=== PATIENT | female | born 2000 | race Caucasian/White ===

== ENCOUNTER → 2019-07-14 | Outpatient (CLI) | payer OTHER ==
[2019-01-30 10:01] VITALS: BP 134/84
[~2019-07-14] MED LIST: DOCU-109 PO; IBUP-1027 PO; OXYC1TAB15 PO
[2019-07-14 15:54] LABS: BASO # 0.1 x10^3/uL (0.0-0.2); BASO % 1 % (0-3); EOS # 0.1 x10^3/uL (0.0-0.7); EOS % 1 % (0-3); HEMATOCRIT 40.8 % (36.0-47.0); HEMOGLOBIN 13.2 g/dL (12.0-15.5); LYMPH # 3.3 x10^3/uL (1.0-4.8); LYMPH % 34 % (24-48); MEAN CORPUSCULAR HEMOGLOBIN 27 pg (25-35); MEAN CORPUSCULAR HGB CONC 33 g/dL (31-37); MEAN CORPUSCULAR VOLUME 82 fL (79-100); MONO # 0.6 x10^3/uL (0.0-1.1); MONO % 6 % (0-9); NEUT # 5.5 x10^3/uL (1.8-7.7); NEUT % 58 % (31-73); PLATELET COUNT 285 x10^3/uL (140-400); RED BLOOD COUNT 4.95 x10^6/uL (3.50-5.40); RED CELL DISTRIBUTION WIDTH 15.6 % (11.5-14.5); WHITE BLOOD COUNT 9.6 x10^3/uL (4.0-11.0)
[2019-07-14 16:07] LABS: CHOLESTEROL/HDL RATIO 3.5
[2019-07-14 16:20] LABS: FREE T4 1.08 ng/dL (0.76-1.46); THYROID STIM HORMONE (TSH) 2.315 uIU/mL (0.358-3.74)
== END | disposition home or self-care (01) ==
LOC: LAB 15:18
PROVIDERS: ATTEND Obstetrics & Gynecology
DX: Z30.09 Encounter for other general counseling and advice on contraception (principal); E34.9 Endocrine disorder, unspecified
CPT/HCPCS: 36415; 80061; 84439; 84443; 85025

== ENCOUNTER → 2019-12-17 | Outpatient (CLI) | payer OTHER ==
[2019-01-30 10:01] VITALS: BP 134/84
[2019-12-17 17:39] LABS: BASO % 0 % (0-3); EOS # 0.1 x10^3/uL (0.0-0.7); EOS % 1 % (0-3); HEMATOCRIT 38.6 % (36.0-47.0); LYMPH # 2.4 x10^3/uL (1.0-4.8); LYMPH % 25 % (24-48); MEAN CORPUSCULAR HEMOGLOBIN 29 pg (25-35); MEAN CORPUSCULAR HGB CONC 34 g/dL (31-37); MEAN CORPUSCULAR VOLUME 86 fL (79-100); MONO # 0.5 x10^3/uL (0.0-1.1); MONO % 5 % (0-9); NEUT # 6.8 x10^3/uL (1.8-7.7); NEUT % 69 % (31-73); PLATELET COUNT 224 x10^3/uL (140-400); RED BLOOD COUNT 4.49 x10^6/uL (3.50-5.40); RED CELL DISTRIBUTION WIDTH 14.5 % (11.5-14.5); WHITE BLOOD COUNT 9.8 x10^3/uL (4.0-11.0)
== END | disposition home or self-care (01) ==
LOC: LAB 15:23
PROVIDERS: ATTEND Obstetrics & Gynecology
DX: Z32.01 Encounter for pregnancy test, result positive (principal)
CPT/HCPCS: 36415; 85025; 86592; 86703; 86762; 86850; 86900; 86901; 87340

== ENCOUNTER 2020-07-07 16:36 | Observation (INO) | payer OTHER ==
[2019-01-30 10:01] VITALS: BP 134/84
[2020-07-07 17:51] LABS: AMNIO PT NEGATIVE
--- NOTE | 2020-07-07 18:36 | RAD ---
Exam: Ultrasound OB limited Indication: Leaking fluid Technique: Real-time grayscale and color Doppler images of the pelvis were obtained by the department marble worker. Comparisons: None FINDINGS: Within the uterus there is a single live intrauterine gestation with heart rate measuring 162 b pm. Fetus is in cephalic position. measurements as follows: BPD: 9.1 cm corresponding to 37 weeks 1 day Head circumference: 32.8 cm corresponding to 37 weeks 2 days Abdominal circumference: 33.4 cm corresponding to 37 weeks 2 days Femur length: 6.6 cm corresponding to 34 weeks 1 day JEAN CARLOS measured at 7.1 cm. Placenta is fundal and appears normal. IMPRESSION: 1. JEAN CARLOS measured at 7.1 cm. 2. Single live intrauterine gestation with measurements as described above. Electronically signed by: Nyla Olmstead MD (07/07/2020 6:34 PM) TU
== END 2020-07-07 18:00 | disposition home or self-care (01) ==
LOC: 3 SO LND 16:36
PROVIDERS: ADMIT Obstetrics & Gynecology; ATTEND Obstetrics & Gynecology
DX: O42.92 Full-term premature rupture of membranes, unspecified as to length of time between rupture and onset of labor (principal); O62.9 Abnormality of forces of labor, unspecified; Z3A.37 37 weeks gestation of pregnancy
CPT/HCPCS: 36415; 59025; 76815; 84112; G0378; G0379

== ENCOUNTER 2020-07-13 11:58 | Observation (INO) | payer OTHER ==
[2019-01-30 10:01] VITALS: BP 134/84
[2020-07-13] MEDS ORDERED: IV RINGERS,LACTATED 1000ML 1,000 ML IV SCH (12:15)
[2020-07-13 12:40] LABS: BILIRUBIN,URINE NEGATIVE (NEG); CLARITY,URINE CLEAR; COLOR,URINE YELLOW; NITRITE,URINE NEGATIVE (NEG); PROTEIN,URINE NEGATIVE (NEG-TRACE); UROBILINOGEN,URINE 0.2 mg/dL (0.2 mg/dL)
[2020-07-13 13:18] LABS: BACTERIA,URINE MODERATE /HPF (0-FEW)
[2020-07-13 13:19] LABS: RBC,URINE 0 /HPF (0-2)
--- NOTE | 2020-07-13 14:35 | RAD ---
EXAM: Follow-up OB Ultrasound INDICATION: Reason: JEAN CARLOS; LOW JEAN CARLOS ON PREVIOUS US 07/07/20 / Spl. Instructions: / History: TECHNIQUE: Real-time follow-up limited obstetrical ultrasound was performed with permanent freeze-fra me documentation. COMPARISON: Limited OB ultrasound of 07/07/2020 FINDINGS: POSITION: Cephalic HEART RATE: 149 bpm JEAN CARLOS: 8.8 cm PLACENTA: Fundal AGE/DATES: Gestational Age by LMP: 37 weeks 6 days EDC by LMP: 07/28/2020 JEAN CARLOS measures 4.2 cm Cervical length is 4.9 cm. IMPRESSION: Live single IUP in cephalic presentation with JEAN CARLOS of 8.8 cm. Electronically signed by: Rogelio Galeas MD (07/13/2020 2:33 PM) [id number]
== END 2020-07-13 14:15 | disposition home or self-care (01) ==
LOC: 3 SO LND 11:58
PROVIDERS: ADMIT Obstetrics & Gynecology; ATTEND Obstetrics & Gynecology
DX: O99.891 Other specified diseases and conditions complicating pregnancy (principal); M54.9 Dorsalgia, unspecified; O26.893 Other specified pregnancy related conditions, third trimester; R51.9 Headache, unspecified; O62.9 Abnormality of forces of labor, unspecified; Z3A.37 37 weeks gestation of pregnancy
CPT/HCPCS: 59025; 76816; 81001; 87086; G0378; G0379

== ENCOUNTER → 2020-07-18 | Outpatient (CLI) | payer OTHER ==
[2019-01-30 10:01] VITALS: BP 134/84
== END ==
LOC: LAB 12:23
PROVIDERS: ATTEND Obstetrics & Gynecology
DX: Z01.812 Encounter for preprocedural laboratory examination (principal); Z20.822 Contact with and (suspected) exposure to COVID-19
CPT/HCPCS: U0003

== ENCOUNTER 2020-07-21 18:55 | Inpatient (IN) | payer OTHER ==
[~2020-07-21] VITALS: Ht 160 cm; Wt 94.1 kg
[2020-07-21] MEDS ORDERED: LIDOCAINE 1% PF 30 ML VIAL. INJ PRN (19:30)
[2020-07-21] MEDS ORDERED: TERBUTALINE 1 MG/ML VIAL. SQ PRN (19:30)
[2020-07-21] MEDS ORDERED: MAG HYDROX/ALUMINUM HYD/SIMETH 30 ML ORAL.SUSP PO PRN (19:30)
[2020-07-21] MEDS ORDERED: 0.9 % SODIUM CHLORIDE 10 ML DISP.SYRIN. IV PRN (19:30)
[2020-07-21] MEDS ORDERED: OXYTOCIN 30 UNIT/500 ML PREMIX 500 ML IV PRN ×3 (19:30)
[2020-07-21] MEDS ORDERED: ONDANSETRON PF 4 MG/2 ML VIAL. IVP PRN (19:30)
[2020-07-21] MEDS ORDERED: ACETAMINOPHEN 325 MG TABLET. PO PRN (19:30)
[2020-07-21 19:37] VITALS: BP 133/67
[2020-07-21] MEDS ORDERED: DINOPROSTONE 10 MG SUPP.VAG VG ONE (20:00)
[2020-07-21] MEDS ORDERED: PENICILLIN G K 5,000,000 UNIT in IV DEXTROSE 5% 100ML 100 ML IV ONE (20:00)
[2020-07-21] MEDS ORDERED: diphenhydrAMINE HCL 25 MG CAPSULE PO ONE (20:00)
[2020-07-21 20:15] LABS: BASO # 0.1 x10^3/uL (0.0-0.2); BASO % 1 % (0-3); EOS # 0.1 x10^3/uL (0.0-0.7); EOS % 1 % (0-3); HEMATOCRIT 30.6 % (36.0-47.0); LYMPH # 3.1 x10^3/uL (1.0-4.8); LYMPH % 23 % (24-48); MEAN CORPUSCULAR HEMOGLOBIN 28 pg (25-35); MEAN CORPUSCULAR HGB CONC 33 g/dL (31-37); MEAN CORPUSCULAR VOLUME 85 fL (79-100); MONO # 0.9 x10^3/uL (0.0-1.1); MONO % 6 % (0-9); NEUT # 9.4 x10^3/uL (1.8-7.7); NEUT % 70 % (31-73); PLATELET COUNT 184 x10^3/uL (140-400); RED BLOOD COUNT 3.62 x10^6/uL (3.50-5.40); RED CELL DISTRIBUTION WIDTH 13.6 % (11.5-14.5); WHITE BLOOD COUNT 13.6 x10^3/uL (4.0-11.0)
[2020-07-21 20:17] LABS: BILIRUBIN,URINE NEGATIVE (NEG); CLARITY,URINE CLEAR; COLOR,URINE YELLOW; NITRITE,URINE NEGATIVE (NEG); PH,URINE 6.5 (<5.0-8.0); PROTEIN,URINE NEGATIVE (NEG-TRACE); UROBILINOGEN,URINE 0.2 mg/dL (0.2 mg/dL)
[2020-07-21 20:23] LABS: BACTERIA,URINE MANY /HPF (0-FEW)
[2020-07-21 20:26] LABS: RBC,URINE 0 /HPF (0-2)
[2020-07-21] MEDS: IV RINGERS,LACTATED 1000ML 1,000 ML IV SCH (20:56)
[2020-07-22] MEDS ORDERED: PENICILLIN G K 2,500,000 UNIT in IV DEXTROSE 5% 50 ML IV SCH
[2020-07-22] MEDS: IV RINGERS,LACTATED 1000ML 1,000 ML IV SCH (06:09)
--- NOTE | 2020-07-22 07:41 | PDOC1 ---
OB - History Hx of Present Care: Good Care Ultrasounds: Normal mid trimester US Obstetrical Complications: None Medical Complications: None Past Family/Social History * Past Medical, Surgical, Family and Obstetric Histories reviewed from chart. Rubella: Immune RPR/VDRL: Negative GBS Status: Negative HBsAG: Negative OB - Chief Complaint & HPI Date of Admission: Date of Admission: Jul 21, 2020 at 18:55 Chief Complaint/History : 2 Para: 1 EGA: 39 Reason for admission: induction of labor Admission Nurse Assessment Rev: Yes OB - Admission Exam Physical Exam Vitals: VS - Last 72 Hours, by Label Date Time Temp Pulse Resp B/P (MAP) Pulse Ox O2 Delivery O2 Flow Rate FiO2 07/21/20 19:37 99.2 100 20 133/67 (89) 99.2 HEENT: Normal Heart: Regular Rate Lungs: Clear Abdomen: Gravid, Non tender, Soft Extremities: Edema Reflexes: Normal Cervical Dilatation: 2cm Effacement: 50% Station: -3 Membranes: Intact Heart Rate: Normal Accelerations: Accelerations Present Decelerations: No decelerations Contractions on Admission: None Text A: 39 wks IUP IOL maternal discomforts P: Admit IOL cervidil, then pitocin in am. SHAKA BILLINGS Jr, MD Jul 22, 2020 07:41
[2020-07-22] MEDS ORDERED: ROPIVacaine 0.2% PF 10 ML VIAL. ONE ×2 (08:26→09:00)
[2020-07-22] MEDS ORDERED: L&D EPIDURAL SYRINGE 50 ML ONE (08:27)
[2020-07-22] MEDS ORDERED: L&D EPIDURAL 50 ML SYRINGE. ONE (09:00)
[2020-07-22] MEDS ORDERED: ePHEDrine PF IN SALINE 50 MG/10 ML SYRINGE. IV PRN (09:30)
[2020-07-22] MEDS ORDERED: NALOXONE 0.4 MG/ML VIAL. IV PRN (09:30)
[2020-07-22] MEDS ORDERED: IV RINGERS,LACTATED 1000ML 1,000 ML IV SCH (09:30)
[2020-07-22] MEDS ORDERED: ROPIVacaine 0.2% PF 10 ML VIAL. EPID PRN (09:30)
[2020-07-22] MEDS: fentaNYL PF VIAL 100 MCG/2 ML VIAL IVP PRN ×2 (09:31→19:26)
--- NOTE | 2020-07-22 09:54 | PDOC ---
VAGINAL DELIVERY DATE DATE: 07/22/20 TIME: 09:48 : 2 Para: 2 EGA: 39 VAGINAL DELIVERY: VTX VACCUM ASSISTED: No PLACENTA: Spontaneous 8/9 SEX: Female WEIGHT Weight [ 6 lbs. 12 oz. ] Nuchal Cord: No Amniotic Fluid: Clear PAIN: Epidural EPISIOTOMY: No EXTENSION: Yes (periurethral; hemostatic) EBL 500 ml COMPLICATIONS placental abruption with abnormal cord insertion on periphery of placenta requiring manual removal CONDITION stable Signs of Intrauterine Infectio: None Shoulder Dystocia: No SHAKA BILLINGS Jr, MD Jul 22, 2020 09:53
[2020-07-22] MEDS ORDERED: PHENYLEPH/MINERAL OIL/PETROLAT RECTAL OINTMENT TUBE. RC PRN (10:00)
[2020-07-22] MEDS ORDERED: HYDROCORTISONE 1% TOPICAL OINTMENT 30GM TUBE. TP PRN (10:00)
[2020-07-22] MEDS ORDERED: BENZOCAINE 20% TOPICAL AEROSOL SPRAY 57GM CAN. TP PRN (10:00)
[2020-07-22] MEDS ORDERED: MMR per PROTOCOL. MC PRN (10:00)
[2020-07-22] MEDS ORDERED: diphenhydrAMINE HCL 25 MG CAPSULE PO PRN (10:00)
[2020-07-22] MEDS ORDERED: ZOLPIDEM 5 MG TABLET. PO PRN (10:00)
[2020-07-22] MEDS ORDERED: OXYTOCIN 30 UNIT/500 ML PREMIX 500 ML IV PRN (10:00)
[2020-07-22] MEDS ORDERED: TDaP (Adacel) per PROTOCOL. MC PRN (10:00)
[2020-07-22] MEDS ORDERED: DOCUSATE SODIUM 100 MG CAPSULE. PO PRN (10:00)
[2020-07-22] MEDS ORDERED: MAGNESIUM HYDROXIDE 2,400 MG/30 ML ORAL.SUSP. PO PRN (10:00)
[2020-07-22] MEDS ORDERED: 0.9 % SODIUM CHLORIDE 10 ML DISP.SYRIN. IV PRN (10:00)
[2020-07-22] MEDS ORDERED: MAG HYDROX/ALUMINUM HYD/SIMETH 30 ML ORAL.SUSP PO PRN (10:00)
[2020-07-22] MEDS ORDERED: IBUPROFEN 400 MG TABLET. PO PRN (10:00)
[2020-07-22] MEDS ORDERED: SIMETHICONE 80 MG TAB.CHEW PO PRN (10:00)
[2020-07-22] MEDS ORDERED: oxyCODONE/APAP 5/325 1 TAB TABLET PO PRN (10:00)
[2020-07-22] MEDS ORDERED: ACETAMINOPHEN 325 MG TABLET. PO PRN (10:00)
[2020-07-22] MEDS: IBUPROFEN 400 MG TABLET. PO PRN (11:57)
[2020-07-22 13:29] VITALS: BP 109/52
[2020-07-22 15:43] VITALS: BP 123/67
[2020-07-22 18:06] VITALS: BP 120/55
[2020-07-22 19:47] VITALS: BP 108/56
[2020-07-23 00:30] VITALS: BP 113/64
[2020-07-23 06:00] VITALS: BP 112/60
[2020-07-23 07:38] LABS: BASO # 0.1 x10^3/uL (0.0-0.2); BASO % 1 % (0-3); EOS # 0.1 x10^3/uL (0.0-0.7); EOS % 1 % (0-3); HEMATOCRIT 28.8 % (36.0-47.0); HEMOGLOBIN 9.3 g/dL (12.0-15.5); LYMPH % 25 % (24-48); MEAN CORPUSCULAR HEMOGLOBIN 27 pg (25-35); MEAN CORPUSCULAR HGB CONC 32 g/dL (31-37); MEAN CORPUSCULAR VOLUME 84 fL (79-100); MONO % 6 % (0-9); NEUT # 10.9 x10^3/uL (1.8-7.7); NEUT % 68 % (31-73); PLATELET COUNT 137 x10^3/uL (140-400); RED BLOOD COUNT 3.41 x10^6/uL (3.50-5.40); RED CELL DISTRIBUTION WIDTH 13.7 % (11.5-14.5); WHITE BLOOD COUNT 16.1 x10^3/uL (4.0-11.0)
[2020-07-23] MEDS: MULTIVITAMIN with MINERAL TABLET. PO SCH (08:52)
[2020-07-23] MEDS: IBUPROFEN 400 MG TABLET. PO PRN ×3 (08:54→20:10)
[2020-07-23] MEDS: FERROUS SULFATE 325 MG TABLET. PO SCH ×2 (08:55→16:56)
[2020-07-23 08:58] VITALS: BP 124/74
--- NOTE | 2020-07-23 10:05 | PDOC ---
OB Progress Note Date of Service 07/23/20 Time of Evaluation 1000 Notes Pt. feeling well. No complaints. Lab Laboratory Tests Test 07/21/20 19:15 07/21/20 20:00 07/23/20 07:21 Urine Collection Type Unknown Urine Color Yellow Urine Clarity Clear Urine pH 6.5 (<5.0-8.0) Urine Specific [place] >=1.030 (1.000-1.030) Urine Protein Negative mg/dL (NEG-TRACE) Urine Glucose (UA) Negative mg/dL (NEG) Urine Ketones (Stick) Negative mg/dL (NEG) Urine Blood Negative (NEG) Urine Nitrite Negative (NEG) Urine Bilirubin Negative (NEG) Urine Urobilinogen Dipstick 0.2 mg/dL (0.2 mg/dL) Urine Leukocyte Esterase Large (NEG) Urine RBC 0 /HPF (0-2) Urine WBC 5-10 /HPF (0-4) Urine Squamous Epithelial Cells Many /LPF Urine Bacteria Many /HPF (0-FEW) Urine Mucus Marked /LPF White Blood Count 13.6 x10^3/uL (4.0-11.0) 16.1 x10^3/uL (4.0-11.0) Red Blood Count 3.62 x10^6/uL (3.50-5.40) 3.41 x10^6/uL (3.50-5.40) Hemoglobin 10.0 g/dL (12.0-15.5) 9.3 g/dL (12.0-15.5) Hematocrit 30.6 % (36.0-47.0) 28.8 % (36.0-47.0) Mean Corpuscular Volume 85 fL (79-100) 84 fL (79-100) Mean Corpuscular Hemoglobin 28 pg (25-35) 27 pg (25-35) Mean Corpuscular Hemoglobin Concent 33 g/dL (31-37) 32 g/dL (31-37) Red Cell Distribution Width 13.6 % (11.5-14.5) 13.7 % (11.5-14.5) Platelet Count 184 x10^3/uL (140-400) 137 x10^3/uL (140-400) Neutrophils (%) (Auto) 70 % (31-73) 68 % (31-73) Lymphocytes (%) (Auto) 23 % (24-48) 25 % (24-48) Monocytes (%) (Auto) 6 % (0-9) 6 % (0-9) Eosinophils (%) (Auto) 1 % (0-3) 1 % (0-3) Basophils (%) (Auto) 1 % (0-3) 1 % (0-3) Neutrophils # (Auto) 9.4 x10^3/uL (1.8-7.7) 10.9 x10^3/uL (1.8-7.7) Lymphocytes # (Auto) 3.1 x10^3/uL (1.0-4.8) 4.0 x10^3/uL (1.0-4.8) Monocytes # (Auto) 0.9 x10^3/uL (0.0-1.1) 1.0 x10^3/uL (0.0-1.1) Eosinophils # (Auto) 0.1 x10^3/uL (0.0-0.7) 0.1 x10^3/uL (0.0-0.7) Basophils # (Auto) 0.1 x10^3/uL (0.0-0.2) 0.1 x10^3/uL (0.0-0.2) Treponema pallidum Antibody Nonreactive (Nonreactive) Laboratory Tests Test 07/23/20 07:21 White Blood Count 16.1 x10^3/uL (4.0-11.0) Red Blood Count 3.41 x10^6/uL (3.50-5.40) Hemoglobin 9.3 g/dL (12.0-15.5) Hematocrit 28.8 % (36.0-47.0) Mean Corpuscular Volume 84 fL (79-100) Mean Corpuscular Hemoglobin 27 pg (25-35) Mean Corpuscular Hemoglobin Concent 32 g/dL (31-37) Red Cell Distribution Width 13.7 % (11.5-14.5) Platelet Count 137 x10^3/uL (140-400) Neutrophils (%) (Auto) 68 % (31-73) Lymphocytes (%) (Auto) 25 % (24-48) Monocytes (%) (Auto) 6 % (0-9) Eosinophils (%) (Auto) 1 % (0-3) Basophils (%) (Auto) 1 % (0-3) Neutrophils # (Auto) 10.9 x10^3/uL (1.8-7.7) Lymphocytes # (Auto) 4.0 x10^3/uL (1.0-4.8) Monocytes # (Auto) 1.0 x10^3/uL (0.0-1.1) Eosinophils # (Auto) 0.1 x10^3/uL (0.0-0.7) Basophils # (Auto) 0.1 x10^3/uL (0.0-0.2) Medications Current Medications Sodium Chloride (Normal Saline Flush) 3 ml QSHIFT PRN IV AFTER MEDS AND BLOOD DRAWS; Start 07/21/20 at 19:30 Ringer's Solution 1,000 ml @ 125 mls/hr Q8H IV Last administered on 07/22/20at 06:09; Start 07/21/20 at 20:00 Fentanyl Citrate (Fentanyl 2ml Vial) 100 mcg PRN Q20MIN PRN IVP Labor pain Last administered on 07/22/20at 09:31; Start 07/21/20 at 19:30 Acetaminophen (Tylenol) 650 mg PRN Q6HRS PRN PO MILD PAIN / TEMP > 100.3'F; Start 07/21/20 at 19:30 Ondansetron HCl (Zofran) 4 mg PRN Q4HRS PRN IVP NAUSEA/VOMITING; Start 07/21/20 at 19:30 Al Hydroxide/Mg Hydroxide (Mylanta Plus Xs) 30 ml PRN Q4HRS PRN PO HEARTBURN / GAS; Start 07/21/20 at 19:30 Terbutaline Sulfate (Brethine) 0.25 mg 1X PRN PRN SQ SEE COMMENTS; Start 07/21/20 at 19:30; Stop 07/22/20 at 19:29; Status DC Lidocaine HCl (Xylocaine 1% Pf 30ml Vial) 30 ml 1X PRN PRN INJ SEE COMMENTS; Start 07/21/20 at 19:30; Stop 07/23/20 at 19:29 Oxytocin 500 ml @ 0 mls/hr CONT PRN IV SEE I/O RECORD Last administered on 07/22/20at 06:08; Start 07/21/20 at 19:30 Oxytocin 500 ml @ 0 mls/hr CONT PRN IV SEE I/O RECORD; Start 07/21/20 at 19:30 Oxytocin 500 ml @ 0 mls/hr CONT PRN PRN IV Post delivery bleeding; Start 07/21/20 at 19:30 Ibuprofen (Motrin) 800 mg PRN Q6HRS PRN PO PAIN Last administered on 07/23/20at 08:54; Start 07/21/20 at 19:30 Penicillin G Potassium 1895744 unit/Dextrose 100 ml @ 100 mls/hr 1X ONCE IV Last administered on 07/22/20at 06:09; Start 07/21/20 at 20:00; Stop 07/21/20 at 20:59; Status DC Penicillin G Potassium [id number] unit/Dextrose 50 ml @ 100 mls/hr Q4H IV ; Start 07/22/20 at 00:00 Dinoprostone (Cervidil) 10 mg 1X ONCE VG Last administered on 07/21/20at 20:55; Start 07/21/20 at 20:00; Stop 07/21/20 at 20:01; Status DC Diphenhydramine HCl (Benadryl) 50 mg 1X ONCE PO Last administered on 07/21/20at 23:34; Start 07/21/20 at 20:00; Stop 07/21/20 at 20:01; Status DC Ropivacaine (Naropin 0.2%) 10 ml STK-MED ONCE .ROUTE ; Start 07/22/20 at 08:26; Stop 07/22/20 at 08:26; Status DC Fentanyl Citrate 50 ml @ As Directed STK-MED ONCE .ROUTE ; Start 07/22/20 at 08:27; Stop 07/22/20 at 08:27; Status DC Ringer's Solution 1,000 ml @ 125 mls/hr Q8H IV ; Start 07/22/20 at 09:30 Ephedrine Sulfate (ePHEDrine PF IN SALINE SYRINGE) 10 mg PRN Q2MIN PRN IV IF SBP<90; Start 07/22/20 at 09:30 Naloxone HCl (Narcan) 0.04 mg PRN Q1MIN PRN IV SEE COMMENTS; Start 07/22/20 at 09:30 Ropivacaine (Naropin 0.2%) 20 ml 1X PRN PRN EPID PER ANESTHESIA; Start 07/22/20 at 09:30 Sodium Chloride (Normal Saline Flush) 10 ml QSHIFT PRN IV AFTER MEDS AND BLOOD DRAWS; Start 07/22/20 at 10:00 Oxytocin 500 ml @ 62.5 mls/hr CONT PRN IV SEE I/O RECORD; Start 07/22/20 at 10:00; Stop 07/22/20 at 17:59; Status DC Acetaminophen (Tylenol) 650 mg PRN Q6HRS PRN PO MILD PAIN / TEMP > 100.3'F; Start 07/22/20 at 10:00 Ibuprofen (Motrin) 800 mg PRN Q8HRS PRN PO INFLAMMATION/PAIN PREVENTION Last administered on 07/22/20at 19:28; Start 07/22/20 at 10:00 Docusate Sodium (Colace) 100 mg PRN BID PRN PO HARD STOOLS; Start 07/22/20 at 10:00 Magnesium Hydroxide (Milk Of Magnesia) 2,400 mg PRN DAILY PRN PO CONSTIPATION; Start 07/22/20 at 10:00 Al Hydroxide/Mg Hydroxide (Mylanta Plus Xs) 30 ml PRN Q4HRS PRN PO HEARTBURN / GAS; Start 07/22/20 at 10:00 Simethicone (Gas-X) 80 mg PRN AFTMEALHC PRN PO GAS / BLOATING; Start 07/22/20 at 10:00 Diphenhydramine HCl (Benadryl) 25 mg PRN Q6HRS PRN PO ITCHING; Start 07/22/20 at 10:00 Benzocaine (Americaine) 1 spray PRN QID PRN TP TOPICAL PAIN Last administered on 07/22/20at 11:57; Start 07/22/20 at 10:00 Phenyleph/Shark Oil/Min Oil/Petrol (Preparation H) 1 robbie PRN QID PRN RC RECTAL PAIN; Start 07/22/20 at 10:00 Hydrocortisone (Cortaid) 1 robbie PRN QID PRN TP PERINEAL PAIN; Start 07/22/20 at 10:00 Ferrous Sulfate (Feosol) 325 mg BIDWMEALS PO Last administered on 07/23/20at 08:55; Start 07/23/20 at 08:00 Zolpidem Tartrate (Ambien) 5 mg PRN QHS PRN PO INSOMNIA, MAY REPEAT X1; Start 07/22/20 at 10:00 Info (Do NOT chart on this placeholder) 1 ea 1X PRN PRN MC SEE COMMENTS; Start 07/22/20 at 10:00 Info (Do NOT chart on this placeholder) 1 ea 1X PRN PRN MC SEE COMMENTS; Start 07/22/20 at 10:00 Oxycodone/ Acetaminophen (Percocet 5/325) 2 tab PRN Q4HRS PRN PO MODERATE PAIN, SEVERE PAIN; Start 07/22/20 at 10:00 Multivitamins (Thera M Plus) 1 tab DAILY PO Last administered on 07/23/20at 08:52; Start 07/23/20 at 09:00 Cefazolin Sodium/ Dextrose 50 ml @ 100 mls/hr 1X ONCE IV Last administered on 07/22/20at 13:07; Start 07/22/20 at 13:00; Stop 07/22/20 at 13:29; Status DC Active Scripts Active Colace (Docusate Sodium) 100 Mg Capsule 100 Mg PO PRN BID PRN Percocet 5-325 Mg Tablet (Oxycodone/Acetaminophen) 1 Each Tablet 2 Tab PO PRN Q4HRS PRN Ibuprofen 400 Mg Tablet 800 Mg PO PRN Q6HRS PRN Exam Abd: soft, non tender, fundus firm Assessment PPD#1 s/p Plan of Care: Continue current Tx, SHAKA Bird Jr, MD Jul 23, 2020 10:05
--- NOTE | 2020-07-23 10:07 | DISCH ---
DISCHARGE INSTRUCTIONS Condition on Discharge Condition on Discharge: Stable Activity After Discharge Activity Instructions for Disc: Activity as tolerated Lifting Instructions after Dis: No heavy lifting Driving Instructions after Dis: Do not drive today Diet after Discharge Diet after Discharge: Regular Contacting the DRCarina after DC Call your doctor for: Concerns you may have Follow-Up Follow up with: Dr. Christie in 6 wks. SHAKA CHRISTIE Jr, MD Jul 23, 2020 10:07
[2020-07-23 11:40] VITALS: BP 118/58
[2020-07-23 16:50] VITALS: BP 109/64
[2020-07-23 20:26] VITALS: BP 126/60
[2020-07-24 06:14] VITALS: BP 104/51
[2020-07-24 08:02] VITALS: BP 110/57
[2020-07-24] MEDS: FERROUS SULFATE 325 MG TABLET. PO SCH (08:54)
[2020-07-24] MEDS: MULTIVITAMIN with MINERAL TABLET. PO SCH (08:54)
[2020-07-24] MEDS: IBUPROFEN 400 MG TABLET. PO PRN (08:55)
--- NOTE | 2020-07-24 09:50 | PDOC3 ---
OB DISCHARGE SUMMARY DATE OF ADMISSION: 07/21/20 DATE OF DISCHARGE: 07/24/20 REASON FOR ADMISSION: Induction of labor INTRAPARTUM PROCEDURES: Spontanous Vag Deliv (placenta abruption with manual removal pacenta) DISCHARGE DIAGNOSIS: Term Delivered DISCHARGE INFORMATION: Activity (ad huong), Diet (regular), Instructions (pelvic rest x 6 wks) HOSPITAL COURSE Term gestation delivered vaginally with placenta abruption and need for manual removal of placenta. SHAKA BILLINGS Jr, MD Jul 24, 2020 09:50
[2020-07-24] MEDS ORDERED: FLU VACC QS 2020-21(6MOS+)/PF 0.5 ML SYRINGE. VAX IM ONE (11:30)
[2020-07-24 11:37] VITALS: BP 122/78
--- NOTE | 2020-07-24 12:04 | NUR ---
Pt. discharged home ambulatory with her in stable post condition. Pt received Flu vaccine at discharge, as she was offered one more time and changed her decision to a "YES" Mom and accompanied per father the baby. All home care and follow care instruction reviewed and copy given to patient. PO pain meds and stool softener given prior to dismissal. Pt to call Dr. Christie in AM if she requires further meds other than Ibuprofen
--- NOTE | 2020-07-26 09:11 | PATHOLOGY ---
[facility] Accession Number: [id number] . 01 Material submitted: . placenta - CORD AND PLACENTA . 01 Clinical history: . . 02 Diagnosis: 506 gram fragmented term placenta of an estimated 39 weeks gestation with detached membranes and umbilical cord: - Focally increased perivillous fibrin deposition with villous entrapment. - Mild villous edema, focal. - Subamnionic recent hemorrhage of umbilical cord insertion site. (PEGGYM:erick; 07/25/2020) [facility] 07/26/2020 0829 Local . 02 Comment: There is no evidence of an acute chorioamnionitis. (FATUMA:erick; 07/25/2020) . 02 Electronically signed: . Josiah Harrell MD, Pathologist NPI- [id number] . 01 Gross description: . Received in formalin labeled "Kellen Pereira, placenta" is a fragmented obando placenta received in multiple pieces with detached membranes and umbilical cord. The placental disc measures in aggregate 16.0 x 16.0 x 7.5 cm. The membranes are received stripped from the placenta, and are cloudy and thickened. The membrane insertion cannot be determined due to the fragmented nature of the specimen. The umbilical cord measures 38.0 cm in length, 1.6 cm in diameter, and contains three vessels. The umbilical cord is attached to the amnion, which is stripped away from the placental disc. Under the amnion is extensive red-brown hemorrhagic clotted blood material There are no true knots in the umbilical cord. The placental weight is 506 grams in aggregate. The surface is blue-limon with minimal subchorionic fibrin. Amnion nodosum is not present. Cysts are not present. The maternal surface does not have intact cotyledons. Sectioning through the placental disc reveals extensive diffuse calcifications and fibrotic areas. Brick Stacker sections are submitted as follows: . A1 proximal and distal umbilical cord A2 membranes, rolled A3 telecommunications sales representative peripheral placenta A4 telecommunications sales representative central placenta A5 additional maternal surface A6 surface adjacent to umbilical cord insertion site ([facility] [place]; 07/23/2020) [facility] 07/23/2020 0802 Local . 02 Pathologist provided ICD-10: O43.893, Z37.0, Z3A.39 . 02 CPT . 550793 Specimen Comment: Report sent to Performed at: [address], [place] [id number] MD Chris Poole MD Phone: [phone] Performed at: 02 [facility] [address] [place] [id number] MD Josiah Harrell MD Phone: [phone]
== END 2020-07-24 12:04 | disposition home or self-care (01) | DRG 807 ==
LOC: 3 SO LND 18:55
PROVIDERS: ADMIT Obstetrics & Gynecology; ATTEND Obstetrics & Gynecology
PROC: 10E0XZZ Delivery of Products of Conception, External Approach (ICD-10-PCS; principal; 2020-07-22)
PROC: 3E0P7VZ Introduction of Hormone into Female Reproductive, Via Natural or Artificial Opening (ICD-10-PCS; 2020-07-22)
PROC: 3E0R3BZ Introduction of Anesthetic Agent into Spinal Canal, Percutaneous Approach (ICD-10-PCS; 2020-07-22)
PROC: 00HU33Z Insertion of Infusion Device into Spinal Canal, Percutaneous Approach (ICD-10-PCS; 2020-07-22)
DX: O45.93 Premature separation of placenta, unspecified, third trimester (principal); Z37.0 Single live birth; Z3A.39 39 weeks gestation of pregnancy; O71.82 Other specified trauma to perineum and vulva
CPT/HCPCS: 36415; 81001; 85025; 86592; 86850; 86900; 86901; 87086; 88307; 90471; 90686; C1755; J0690; J2540; J2590; J2795; J3010; J7060; J7120; G0378; Q0163